=== PATIENT | female | born 1980 | race Caucasian/White ===

== ENCOUNTER 2017-03-10 14:22 | Inpatient (IN) | payer OTHER ==
[~2017-03-10] VITALS: Ht 154.9 cm; Wt 59.0 kg
--- NOTE | ~2017-03-10 | PN ---
Unit #: [id number] #: [id number] Patient: YESENIA CABRERA [id number] [facility] [address] [place] [address] [id number] MR#: [id number] NAME: YESENIA CABRERA ROOM: P258 Age: 37 Sex: F Admission Date: 03/10/2017 : 1980 Attending Physician: Vinny Shane M.D. Admitting Physician: Vinny Shane M.D. Primary Care Physician: Generic Doctor Not In System [facility] PROGRESS NOTES DATE 03/14/2017 DISCUSSION Yesenia is up and attending groups today. She now complains of diarrhea after dose of Colace last night and also complains of some anal itching. Her mood is labile with a congruent affect. She is alert and fully oriented with no active psychosis. ASSESSMENT PTSD, chronic. PLAN We will provide ointment as needed for her irritation and continue with current treatment plan. Dictated by... Consuelo Easton/kelvin TD: 03/16/2017 04:27 JOB #: [id number] [facility] PROGRESS NOTES Page 1 of 1 X Vinny Shane MD PROGRESS NOTE
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
--- NOTE | ~2017-03-10 | PN ---
Unit #: [id number] #: [id number] Patient: FAUSTINA CABRERA [id number] [facility] [address] [place] [address] [id number] I MR#: [id number] NAME: FAUSTINA CABRERA ROOM: P258 Age: 37 Sex: F Admission Date: 03/10/2017 : 1980 Attending Physician: Vinny Shane M.D. Admitting Physician: Vinny Shane M.D. Primary Care Physician: Generic Doctor Not In System [facility] PROGRESS NOTES DATE 03/12/2017 DISCUSSION Kelsi continues to be anxious, depressed, and tearful. She makes multiple requests for medication changes, notably for her Crohn's disease. She was seen by our director biomedical engineering and nuclear cardiology technologist for Crohn's disease, and their recommendations have been noted. She is attempting to attend psychotherapy groups and activities and states that she is engaging in yoga practices and other mindfulness activities in an attempt to improve her condition. She does complain significant difficulty sleeping. She is alert and fully oriented. Her memory and concentration are fair. Her thought processes are logical. She reports that she "sees the face of my cat" on the unit and continues to report suicidal ideation. ASSESSMENT 1. Post-traumatic stress disorder. 2. Major depressive disorder. PLAN We will reschedule Ativan and several other medications at the patient's request in order to provide more appropriate coverage during the daytime hours. I will increase trazodone to 100 mg at bedtime as needed for insomnia, and we will add prazosin 2 mg at bedtime for post traumatic symptoms. She will continue on Zoloft 50 mg daily. Dictated by... Consuelo Easton/nivia TD: 03/12/2017 12:24 JOB #: [id number] Unit #: [id number] #: [id number] Patient: FAUSTINA CABRERA PROGRESS NOTES Page 1 of 1 X Vinny Shane MD PROGRESS NOTE
--- NOTE | ~2017-03-10 | HP ---
Unit #: [id number] #: [id number] Patient: YESENIA CABRERA [id number] [place] [address] [id number] MR#: [id number] NAME: YESENIA CABRERA ROOM: P258 Age: 37 Sex: F Admission Date: 03/10/2017 : 1980 Attending Physician: Vinny Shane M.D. Admitting Physician: Vinny Shane M.D. Primary Care Physician: Generic Doctor Not In System HISTORY AND PHYSICAL HISTORY OF PRESENT ILLNESS Yesenia is a 37 year old admitted to [address] [place] [address] with depression and verbalizing wanting to hurt herself. PAST MEDICAL HISTORY 1. Crohn's disease. 2. Hepatitis C. PAST SURGICAL HISTORY Nothing reported. ALLERGIES Tylenol, Depakote, Seroquel. SOCIAL HISTORY Smokes 1/2 pack per day. Drinks alcohol on occasion. Denies illicit drug use. FAMILY HISTORY Medically noncontributory. REVIEW OF SYSTEMS CONSTITUTIONAL: No fever or chills. HEENT: Denies any sore throat, ear pain or runny nose. CARDIOVASCULAR: Denies chest pain, irregular heart rhythm or palpitations. CHEST: Denies shortness of breath or cough. No hemoptysis. GASTROINTESTINAL: Denies nausea, vomiting, diarrhea or chronic constipation. ENDOCRINE: Denies history of increased thirst or urination. No recent significant weight loss or gain. GENITOURINARY: Denies dysuria, frequency, or hematuria. SKIN: Denies any rashes. HEMATOLOGIC: Denies history of increased bleeding or bruising. MUSCULOSKELETAL: Denies any hot, swollen joints. No generalized muscle pain. NEUROLOGIC: Denies problems with vision or speech. No frequent, severe headaches. No numbness, tingling or weakness in any extremities. Denies loss of bladder or bowel control. CURRENT MEDICATIONS 1. Zoloft 50 mg q.a.m. 2. Lorazepam 1 mg b.i.d. 3. Asacol 400 mg t.i.d. Unit #: [id number] #: [id number] Patient: YESENIA CABRERA 4. Nicotine patch 14 mg daily. 5. Zofran 4 mg q. 4 hours p.r.n. 6. Pepcid 20 mg b.i.d. 7. Claritin 10 mg daily. 8. Carafate 1 gram t.i.d. 9. Vistaril 25 mg q. 6 hours p.r.n. PHYSICAL EXAMINATION GENERAL: Alert, well-nourished, in no apparent distress. VITAL SIGNS: Blood pressure 110/72, heart rate 90, respirations 16, temperature 98.6. WEIGHT: 130. HEIGHT: 5 feet 1 inch. SKIN: Warm and dry without rash or lesion. HEENT: Normocephalic. TMs not viewed. Oral and nasal passages clear. Conjunctivae clear. PERRLA. EOMs intact. NECK: Supple without lymphadenopathy or thyromegaly. HEART: Regular rate and rhythm without murmur. LUNGS: Clear. ABDOMEN: Soft, nontender. : Not done. EXTREMITIES: No evidence of cyanosis, clubbing or edema. Moves all without focal deficit. NEUROLOGICAL: Grossly within normal limits. Cranial Nerves: II: Visual rendon are intact. III, IV AND : Extraocular movements are intact. Pupils are equal, round and reactive to light. V: Facial sensation is grossly normal. VII: Facial movements and expression are normal. VIII: Auditory acuity grossly intact. IX, X: Uvula is midline. Phonation is normal. XI: Patient shrugs shoulders and turns head normally. XII: Tongue protrudes in the midline. Sensory and Motor Function: Sensory and motor sensation is grossly normal. Motor: moves all extremities well. Coordination: Gait is normal. Deep Tendon Reflexes: Intact. IMPRESSION Psychiatric admission. RECOMMENDATIONS PSYCHIATRIC: Per psychiatrist. MEDICAL: See no contraindication to participate in facility's activities. MEDICAL PROGNOSIS Good. MEDICAL CONDITION Stable. Dictated by... Diane Jacobson P.A.-C. for Consuelo Jj/petar Unit #: [id number] #: [id number] Patient: YESENIA CABRERA TD: 03/11/2017 16:00 JOB #: [id number] HISTORY AND PHYSICAL Page 1 of 1 X Diane Jacobson HISTORY AND PHYSICAL
--- NOTE | ~2017-03-10 | PN ---
Unit #: [id number] #: [id number] Patient: YESENIA CABRERA [id number] [facility] [address] [place] [address] [id number] I MR#: [id number] NAME: YESENIA CABRERA ROOM: P259 Age: 37 Sex: F Admission Date: 03/10/2017 : 1980 Attending Physician: Vinny Shane M.D. Admitting Physician: Vinny Shane M.D. Primary Care Physician: Generic Doctor Not In System [facility] PROGRESS NOTES DATE 03/17/2017 DISCUSSION Yesenia continues to complain of anxiety and now states that she also has "an alcohol problem that I need to address." I explained to her that she will need to get connected with chemical dependence treatment outside of the hospital. She perseverates on quite negativistic themes, and denies any improvements since admission although she is up and around more, interacting better in groups and activities and appears to be getting along well with her peers. She is alert and fully oriented and no longer complains of auditory hallucinations but continues to assert suicidal ideation. ASSESSMENT PTSD, chronic. PLAN We will add Buspirone 10 mg twice daily for anxiety and continue current treatment plan. Dictated by... Consuelo Easton/kelvin TD: 03/19/2017 03:55 JOB #: [id number] [facility] PROGRESS NOTES Page 1 of 1 X Vinny Shane MD PROGRESS NOTE
--- NOTE | ~2017-03-10 | PN ---
Unit #: [id number] #: [id number] Patient: YESENIA CABRERA [id number] [facility] [address] [place] [address] [id number] I MR#: [id number] NAME: YESENIA CABRERA ROOM: P259 Age: 37 Sex: F Admission Date: 03/10/2017 : 1980 Attending Physician: Vinny Shane M.D. Admitting Physician: Vinny Shane M.D. Primary Care Physician: Generic Doctor Not In System [facility] PROGRESS NOTES DATE 03/16/2017 DISCUSSION Yesenia continues to be needy, weepy, and complains of significant anxiety. She is up and around participating in groups and activities. She is alert and fully oriented. Memory and concentration are fair. Her thought processes are logical. She does report "voices" but does not appear to be responding to internal stimuli. ASSESSMENT 1. Posttraumatic stress disorder. 2. Borderline personality traits. PLAN Increase Zoloft to 100 mg daily. Dictated by... Vinny Shane M.D. TG/bznazia TD: 03/18/2017 10:31 JOB #: [id number] [facility] PROGRESS NOTES Page 1 of 1 X Vinny Shane MD X PROGRESS NOTE
--- NOTE | ~2017-03-10 | PN ---
Unit #: [id number] #: [id number] Patient: YESENIA CABRERA [id number] [facility] [address] [place] [address] [id number] I MR#: [id number] NAME: YESENIA CABRERA ROOM: P258 Age: 37 Sex: F Admission Date: 03/10/2017 : 1980 Attending Physician: Vinny Shnae M.D. Admitting Physician: Vinny Shane M.D. Primary Care Physician: Generic Doctor Not In System [facility] PROGRESS NOTES DATE 03/13/2017 DISCUSSION Yesenia slept a little bit better last night with her prazosin and increased dose of trazodone. She still continues to report depression, anxiety, flashbacks, and brief and vague auditory and visual hallucinations. She also complains of constipation that is currently unrelieved. She is alert and fully oriented. Her memory and concentration are fair. Thought processes are nonpsychotic as noted above. ASSESSMENT 1. Posttraumatic stress disorder, chronic. 2. Major depressive disorder. PLAN We will add Colace 100 mg b.i.d. for constipation relief, and we will check with nurses on possibility of keeping her bathroom available to her. I will increase Zoloft to 75 mg daily for her ongoing PTSD symptoms. Dictated by... Vinny Shane M.D. H/nivia TD: 03/13/2017 11:08 JOB #: [id number] [facility] PROGRESS NOTES Page 1 of 1 X Vinny Shane MD X PROGRESS NOTE
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
== END 2017-03-20 15:40 | disposition home or self-care (01) | DRG 882 ==
LOC: P2L 17:26
DX: F43.10 Post-traumatic stress disorder, unspecified (principal); F32.9 Major depressive disorder, single episode, unspecified; F17.210 Nicotine dependence, cigarettes, uncomplicated